=== PATIENT | male | born 1990 | race African-American/Black ===

== ENCOUNTER 2016-09-06 09:34 | Emergency (ER) | payer OTHER ==
[~2016-09-06] VITALS: Ht 172.7 cm; Wt 67.6 kg
[2016-09-06 09:34] VITALS: BP 122/84
[2016-09-06] MEDS ORDERED: ACETAMINOPHEN 325 MG TAB PO ONE (10:15)
[2016-09-06] MEDS ORDERED: LIDOCAINE 2% MDV 20 ML VIAL SC ONE (10:15)
== END 2016-09-06 10:39 | disposition home or self-care (01) ==
LOC: M ED 10:27
DX: S61.011A Laceration without foreign body of right thumb without damage to nail, initial encounter (principal); W26.0XXA Contact with knife, initial encounter; Y92.099 Unspecified place in other non-institutional residence as the place of occurrence of the external cause; Y93.G1 Activity, food preparation and clean up; Y99.9 Unspecified external cause status